=== PATIENT | female | born 1960 | race Caucasian/White ===

== ENCOUNTER → 2021-05-10 | Day surgery (SDC) | payer OTHER ==
[~2021-05-10] VITALS: Ht 157.5 cm; Wt 56.9 kg
[~2021-05-10] MED LIST: PERCOCET 5-3251 EACH PO; PROZAC20 MG PO; TRAZODONE 100M100 MG PO
[2021-05-10 10:38] LABS: HCT 40.2 % (37.0-47.0); HGB 12.8 g/dl (12.5-16.0); MCH 28.7 pg (25.0-31.0); MCHC 31.8 g/dL (32.0-36.0); MCV 90.1 fL (78.0-100.0); MPV 8.9 fL (6.0-9.5); RBC 4.46 M/uL (4.20-5.40); RDW 13.9 % (11.5-14.0)
[2021-05-10 11:12] LABS: ALBUMIN 3.7 g/dL (3.4-5.0); BILIRUBIN - TOTAL 0.5 mg/dL (0.2-1.0); CREATININE 0.74 mg/dL (0.51-0.95); GLOBULIN (CALCULATION) 3.4 g/dL; POTASSIUM 4.4 mmol/L (3.5-5.1); TOTAL PROTEIN 7.1 g/dL (6.4-8.2)
== END | disposition home or self-care (01) ==
LOC: FAS 09:17
PROVIDERS: Orthopaedic Surgery
DX: M75.122 Complete rotator cuff tear or rupture of left shoulder, not specified as traumatic (principal); M19.012 Primary osteoarthritis, left shoulder; M25.812 Other specified joint disorders, left shoulder; M75.52 Bursitis of left shoulder; S46.212A Strain of muscle, fascia and tendon of other parts of biceps, left arm, initial encounter; X58.XXXA Exposure to other specified factors, initial encounter
CPT/HCPCS: 36415; 71045; 80053; 93005; C1713; J0171; J0690; J2250; J2370; J2405; J2704; J2795; J3010; J7120

== ENCOUNTER 2022-02-10 05:38 | Emergency (ER) | payer OTHER ==
[2022-02-10 06:21] LABS: BASOPHIL 0.8 % (0-2); EOSINOPHIL 2.2 % (0-5); HCT 40.1 % (37.0-47.0); HGB 13.1 g/dl (12.5-16.0); LYMPHOCYTE 35.9 % (15-48); MCH 28.5 pg (25.0-31.0); MCHC 32.7 g/dL (32.0-36.0); MCV 87.2 fL (78.0-100.0); MONOCYTE 5.6 % (0-12); MPV 9.7 fL (6.0-9.5); NEUTROPHIL 54.7 % (41-80); NRBC 0; PLT 306 K/uL (150-400); RDW 13.8 % (11.5-14.0); WBC 6.2 K/uL (4.0-10.5)
[2022-02-10 06:35] LABS: BILIRUBIN NEGATIVE (NEGATIVE); BLOOD 1+ Ery/uL (NEGATIVE); CLARITY CLEAR (CLEAR); COLOR YELLOW (YELLOW); GLUCOSE (U) NORMAL (NORMAL); LEUKOCYTES 1+ Leu/uL (NEGATIVE); NITRITE NEGATIVE (NEGATIVE); PROTEIN NEGATIVE (NEGATIVE); UROBILINOGEN 0.2 mg/dL (0.2-1.0)
[2022-02-10 06:42] LABS: BACTERIA TRACE; URINARY WBC RARE
[2022-02-10 07:21] LABS: ALBUMIN 3.9 g/dL (3.4-5.0); BILIRUBIN - TOTAL 0.5 mg/dL (0.2-1.0); BUN/CREAT RATIO (CALC) 25.3 RATIO; CREATININE 0.75 mg/dL (0.51-0.95); POTASSIUM 4.2 mmol/L (3.5-5.1); TOTAL PROTEIN 6.9 g/dL (6.4-8.2)
== END 2022-02-10 10:43 | disposition other institution (70) ==
LOC: FER 05:38
PROVIDERS: Internal Medicine
DX: S12.601A Unspecified nondisplaced fracture of seventh cervical vertebra, initial encounter for closed fracture (principal); S26.91XA Contusion of heart, unspecified with or without hemopericardium, initial encounter; V43.52XA Car driver injured in collision with other type car in traffic accident, initial encounter
CPT/HCPCS: 36415; 70450; 71260; 72125; 72128; 80053; 81001; 84484; 85025; 93005